=== PATIENT | male | born 2000 | race Caucasian/White ===

== ENCOUNTER 2024-05-04 20:00 | Emergency (ER) | payer BC, SELFPAY ==
[2024-05-04 20:07] VITALS: BP 133/86
[2024-05-04 20:32] LABS: % Basophils 0.4 % (0-2); % Eosinophils 1.3 % (0-6); % Immature Granulocytes 0.3 % (0-0.5); % Lymphocytes 43.9 % (20.5-51.1); % Monocytes 8.9 % (1.7-9.3); % Neutrophils 45.2 % (42.2-75.2); Absolute Eosinophils 0.1 10^3/uL (0-0.7); Absolute Lymphocytes 3.1 10^3/uL (1.2-3.4); Absolute Monocytes 0.6 10^3/uL (0.1-0.6); Absolute Neutrophils 3.2 10^3/uL (1.4-6.5); Hematocrit 43.2 % (39.0-52.0); Hemoglobin 15.2 g/dL (13.0-18.0); Mean Corp Hgb Conc. 35.2 g/dL (33.0-37.0); Mean Platelet Volume 9.9 fL (7.4-10.4); Nucleated Red Blood Cells % 0 % (-); Platelet Count 235 10^3/uL (130-400); Red Blood Cell Count 4.91 10^6/uL (4.70-6.10); Red Cell Dist. Width 11.9 % (11.5-14.5)
[2024-05-04 20:34] LABS: Urine Albumin Negative (Neg - Trace); Urine Bilirubin Negative (Negative); Urine Character Clear (Clear); Urine Color Yellow; Urine Glucose Negative (Negative); Urine Ketone Negative (Negative); Urine Leukocyte Negative (Negative); Urine Nitrite Negative (Negative); Urine Occult Blood Negative (Negative); Urine Urobilinogen Negative (Neg - 1+)
[2024-05-04 21:14] LABS: ALT (SGPT) 21 U/L (0-50); AST (SGOT) 28 U/L (17-59); Albumin 5.2 g/dl (3.5-5.0); Alkaline Phosphatase 50 U/L (38-126); Blood Urea Nitrogen 23 mg/dl (9-20); Carbon Dioxide 26 mmol/L (22-30); Chloride 102 mmol/L (98-107); Glucose 99 mg/dl (70-99); Potassium 4.7 mmol/L (3.5-5.1); Sodium 139 mmol/L (135-145); Total Bilirubin 0.5 mg/dl (0.2-1.3); Total Protein 7.6 g/dl (6.3-8.2); eGFR > 60.00
--- NOTE | 2024-05-04 21:51 | ED.GENMED ---
History of Present Illness
General
Chief Complaint: Back Pain
Source: patient
Exam Limitations: none
Time Seen by Provider: 05/04/24 21:18
History of Present Illness
History of Present Illness:
This is a 23 year old male that comes in with c/o low back pain. States that this started today around 1pm out of the blue. States that he had to craw on the floor and mom states that he was using his Aunts cane. States that he did left weights
yesterday but he did not have any pain at that time. States that his PCP had given him Flexeril in the past and this did not help. Denies any fever, chills, chest pain, SOB, abd pain, nausea, vomiting, diarrhea, headache, dizziness, urinary
burning.
Past History
Past History
ED Past Medical History: Renal failure (Only once in the past and doesn't know why) and Other (Back pain, ADHD)
ED Past Surgical History: Other (Lenox teeth removal, Myringotomy tubes)
Social History
Tobacco: Former smoker
Alcohol: Occasional
Drug: None
Personal: Single
Living: with family
Employment: Student
Review of Systems
Review of Systems
All Other Systems: ROS reviewed and negative except as documented in HPI and ROS
Constitutional: Reports no symptoms; Denies fever or chills
EENT: Reports no symptoms
Respiratory: Reports no symptoms; Denies cough or trouble breathing
Cardiac: Reports no symptoms; Denies chest pain
ABD/GI: Reports no symptoms; Denies abdominal pain, nausea, vomiting or diarrhea
: Reports no symptoms; Denies dysuria, frequency or urgency
Musculoskeletal: Reports back pain (Low back pain)
Skin: Reports no symptoms
Neurological: Reports no symptoms; Denies dizzy or headache
Psychiatric: Reports no symptoms
Phy Exam
General Physical Exam
General Presentation: well appearing and no apparent distress
General age: appears stated age
General Skin: warm and dry
General Habitus: normal
General Mental: alert
General Hydration: appears well hydrated
ENT Exam
ENT Exam: TM's normal, pharynx normal and neck supple
Eye Exam
Eye Exam: EOMI
Cardiovascular Exam
Cardiovascular Exam: regular rate/rhythm, no edema, no murmur and normal peripheral pulses
Pulmonary Exam
Pulmonary Exam: lungs clear, no respiratory distress, no rales, chest non tender, no crackles, no rhonchi, no wheezing and no cough
Gastrointestinal Exam
Gastrointestinal Exam: normal bowel sounds, non tender, soft, no organomegaly, no pulsatile mass and non distended
Musculoskeletal Exam
Musculoskeletal Exam: other (Discomfort with straight leg raise, Turning sided to side, going up on his toes and bending forward. Negative spinal tenderness, low back lateral to the spine discomfort. )
Skin Exam
Skin Exam: normal color, warm/dry, no rash and no petechia
Psychiatric Exam
Psychiatric Exam: normal mood/affect
Course
Orders/Labs/Results
Orders:
Orders
05/04/24 20:19
Complete Blood Count/With Diff Urgent
Comprehensive Metabolic Panel Urgent
05/04/24 20:22
Urinalysis Reflex To Culture Urgent
Date Specimen was Collected: 05/04/24
Time Specimen was Collected: 20:13
05/04/24 21:27
Acetaminophen [Tylenol] 1,000 mg PO NOW STA
Prednisone [Deltasone] 40 mg PO NOW STA
Lumbar Spine Complete, 4 View [CR Lumbar Spine Comp Min 4 Vw*] Urgent
Comment:
Reason For Exam: Low back pain
Abnormal Lab Results
05/04/24
20:19
BUN 23 H mg/dl
(9-20)
Albumin 5.2 H g/dl
(3.5-5.0)
05/04/24 20:19
05/04/24 20:19
Dehydration. albumin slightly low. Urine negative for infection.
Vital Signs
Initial and Last Documented VS:
Initial Vital Signs
Temp Pulse Resp BP Pulse Ox
97.7 F 78 20 133/86 100
05/04/24 20:07 05/04/24 20:07 05/04/24 20:07 05/04/24 20:07 05/04/24 20:07
Last Documented Vital Signs
Temp Pulse Resp BP Pulse Ox
97.7 F 78 20 133/86 100
05/04/24 20:07 05/04/24 20:07 05/04/24 20:07 05/04/24 20:07 05/04/24 20:07
MDM/Problems Addressed
Differential Diagnosis Includes:
Low back pain,
MDM/Problems Addressed:
This is a 23 year old male that comes in with c/o low back pain. States that he did lift weights last night and he did not have any pain. Then today at 1pm he started with severe low back pain that he was crawling due to the pain.
Will Give Steroid, Tylenol and get Lumbar X-ray.
Chronic conditions affecting care:
Low back pain
Acute Exacerbation and/or Progression of Chronic Illness:
back pain
*Pulse Oximetry
Patient hypoxic: no
*EKG
Interpreted by ED Provider?: NA
Rate: EKG- N/A
*[employer] Interpretation
Rate: [employer]- N/A
*Critical Care Note
Total Time (30-74mins, 75-104mins- exclusive of procedures): Not Applicable
ED Attending Note
-
Portions of this chart may have been created with voice recognition software.� Occasional wrong word or��sound alike� substitutions may have occurred due to the inherent limitations of voice recognition software.
Discharge Plan
Departure
Patient Disposition: Home (Routine Discharge)
Date of Disposition: 05/04/24
Time of Disposition: 23:03
Patient with high blood pressure during this ER visit?: Yes
Condition: Good
Covid-19: Not Applicable
Discharge Problem:
Low back pain
Instructions: Low Back Pain (DC)
Prescriptions:
New
prednisone 20 mg tablet
40 mg PO DAILY Qty: 8 0RF
naproxen 500 mg tablet
500 mg PO BID PRN (Reason: Pain) Qty: 10 0RF
Rx Instructions:
Please take with food
No Action
polyethylene glycol 3350 17 GRAMS powder in packet
17 grams PO DAILY Qty: 5 0RF
lidocaine 1 PATCH adhesive patch,medicated
1 patch topical DAILY Qty: 14 0RF
prednisone 10 MG tablet
10 mg PO DAILY Qty: 5 0RF
Rx Instructions:
Take 3 tablets 4/9 then 1.5 tablets 4/10 then stop
tramadol 50 MG tablet
50 mg PO Q6 Qty: 15 0RF
Referrals:
Sotero Parra MD [Family Provider] - Follow up in 2-3 days
Stand Alone Forms: Return to Work
Activity Restrictions/Additional Instructions:
As discussed, your blood work shows slight Dehydration. Please increase your water intake to 8-8oz glasses daily. Your X-ray is negative for any fractures. Your Urine is normal. This is most likely a muscle strain. You may use heat or ice to the low
back which ever makes you feel better. You have had 2 prescriptions sent to your Pharmacy. The first is Prednisone that will help decrease any inflammation. The second is Naproxen that will help with pain and inflammation. You may also use Tylenol
1000mg every 8 hours for pain. PLEASE DO NOT TAKE ANY OTHER ADVIL, ALEVE, OR IBUPROFEN. Follow up with the family doctor IF YOU HAVE INCREASED PAIN, ANY DIFFICULTY WITH BOWELS OR BLADDER, OR YOU HAVE ANY OTHER CONCERNS PLEASE RETURN TO THE
EMERGENCY ROOM.
Interventions
Interventions:
*Risk Screen - Suicide Last Done: 05/04/24 20:07
*General Assessment Last Done: 05/04/24 20:07
*Neglect/Abuse Screening Last Done: 05/04/24 20:07
ED- Fall Risk Assessment Last Done: 05/04/24 20:07
*ED COVID-19 Vaccine History Last Done: 05/04/24 20:07
ED-Musculoskeletal Assessment Last Done: 05/04/24 20:39
Discharge Date and Time
Print Language: GHANAIAN
[2024-05-04] MEDS: DELTASONE 40 MG PO (21:55)
[2024-05-04] MEDS: TYLENOL 1000 MG PO (21:55)
[2024-05-04 23:14] VITALS: BP 109/71
== END 2024-05-04 23:16 | disposition home or self-care (01) ==
LOC: EMR 20:00
PROVIDERS: Emergency Medicine; EMERGENCY PHYSICIAN Emergency Medicine; FAMILY PHYSICIAN Family Medicine
DX: M54.50 Low back pain, unspecified (principal); R03.0 Elevated blood-pressure reading, without diagnosis of hypertension; F90.9 Attention-deficit hyperactivity disorder, unspecified type; Z87.891 Personal history of nicotine dependence; Z88.5 Allergy status to narcotic agent
CPT/HCPCS: 99283; 72110; 80053; 81003; 85025